=== PATIENT | female | born 1955 | race Caucasian/White ===

== ENCOUNTER 2017-07-08 09:44 | Inpatient (IN) | payer OTHER ==
[~2017-07-08] VITALS: Ht 154.9 cm; Wt 103.2 kg
[~2017-07-08 09:44] MED LIST: ALBU90OI INH; Amitriptyline150 MG PO; DELTASONE20 MG PO; DULERA 200 MCG/13 GM INH; MONT5TCH PO; OMEPRAZOLE MAGN20 MG PO; PAXIL40 MG PO; Q-Tussin100 MG/5 M PO
[2017-07-08] MEDS ORDERED: ACYC400 PO ×2 (10:07→14:08)
[2017-07-08 10:30] LABS: BASOPHILS ABSOLUTE AUTO 0.03 K/mm3 (0.00-0.23); BASOPHILS PERCENT AUTO 0 % (0-2); EOSINOPHILS ABSOLUTE AUTO 0.33 K/mm3 (0.00-0.68); EOSINOPHILS PERCENT AUTO 3 % (0-6); Hematocrit 37.3 % (33.0-51.0); Hemoglobin 12.5 g/dL (11.5-16.0); IMMATURE GRAN ABSOLUTE AUTO 0.11 K/mm3 (0.00-0.10); IMMATURE GRAN PERCENT AUTO 1 % (0-1); LYMPHOCYTES ABSOLUTE AUTO 0.92 K/mm3 (0.84-5.20); LYMPHOCYTES PERCENT AUTO 7 % (21-46); MONOCYTES PERCENT AUTO 6 % (4-13); Mean Corpuscular HGB 29.8 pg (26.0-34.0); Mean Corpuscular HGB Conc 33.5 g/dL (31.5-36.5); Mean Corpuscular Volume 89 fL (80-100); Mean Platelet Volume 9.2 fL (9.1-12.4); NEUTROPHILS ABSOLUTE AUTO 10.68 K/mm3 (1.96-9.15); NEUTROPHILS PERCENT AUTO 83 % (41-73); Platelet Count 340 K/mm3 (150-400); RDW Coefficient Variation 14.2 % (11.7-14.2); RDW Standard Deviation 45.8 fL (35.1-46.3); White Blood Cell Count 12.87 K/mm3 (4.00-11.30)
[2017-07-08 10:49] LABS: Alanine Aminotransfer (ALT/SGP 100 U/L (12-78); Albumin, Blood 2.5 g/dL (3.4-5.0); Albumin/Globulin Ratio 0.5 (0.8-1.8); Alk Phos 187 U/L (50-136); Anion Gap 10 mmol/L (6-16); Aspartate Aminotrans (AST/SGOT 49 U/L (12-37); Bilirubin, Total 0.5 mg/dL (0.1-1.0); Blood Urea Nitrogen 15 mg/dL (8-24); Bun/Creatinine Ratio 15.2 (12.0-20.0); CO2, Blood 26 mmol/L (21-32); Chloride, Blood 98 mmol/L (98-108); Creatinine, Blood 0.99 mg/dL (0.40-1.00); Globulin, Blood 4.8 g/dL (2.2-4.0); Glomerular Filtration Rate >60 (60-); Glucose, Blood 84 mg/dL (70-99); Potassium, Blood 3.7 mmol/L (3.5-5.5); Sodium, Blood 134 mmol/L (136-145); Total Protein, Blood 7.3 g/dL (6.4-8.2)
[2017-07-08 14:56] LABS: PCO2 Arterial 37.8 mmHg (35-45); PO2 Arterial 60.6 mmHg (80-100); pH Blood Arterial 7.45 (7.35-7.45)
[2017-07-08 16:34] LABS: Source, Urine Voided
[2017-07-08 16:43] LABS: Bilirubin, Urine Neg (Neg); Blood, Urine Neg (Neg); Glucose Qualitative, Urine Neg (Neg); Ketones, Urine 2+ (Neg); Leukocyte Esterase, Urine Neg (Neg); Nitrite, Urine Neg (Neg); Protein, Urine Neg (Neg); Urobilinogen, Urine NORM (Normal)
[2017-07-08 16:57] LABS: Influenza A Negative (NEGATIVE); Influenza B Negative (NEGATIVE)
[2017-07-08 17:35] LABS: Appearance, Urine Clear (Clear); Color, Urine Pale Yellow (P-Yellow)
[2017-07-09 07:50] LABS: BASOPHILS ABSOLUTE AUTO 0.01 K/mm3 (0.00-0.23); BASOPHILS PERCENT AUTO 0 % (0-2); EOSINOPHILS PERCENT AUTO 0 % (0-6); Hematocrit 35.1 % (33.0-51.0); Hemoglobin 11.7 g/dL (11.5-16.0); IMMATURE GRAN ABSOLUTE AUTO 0.14 K/mm3 (0.00-0.10); IMMATURE GRAN PERCENT AUTO 1 % (0-1); LYMPHOCYTES ABSOLUTE AUTO 1.08 K/mm3 (0.84-5.20); LYMPHOCYTES PERCENT AUTO 10 % (21-46); MONOCYTES ABSOLUTE AUTO 0.21 K/mm3 (0.16-1.47); MONOCYTES PERCENT AUTO 2 % (4-13); Mean Corpuscular HGB 29.9 pg (26.0-34.0); Mean Corpuscular HGB Conc 33.3 g/dL (31.5-36.5); Mean Corpuscular Volume 90 fL (80-100); Mean Platelet Volume 9.4 fL (9.1-12.4); NEUTROPHILS ABSOLUTE AUTO 9.78 K/mm3 (1.96-9.15); NEUTROPHILS PERCENT AUTO 87 % (41-73); Platelet Count 355 K/mm3 (150-400); RDW Standard Deviation 45.7 fL (35.1-46.3); Red Blood Cell Count 3.91 M/mm3 (3.80-5.20); White Blood Cell Count 11.22 K/mm3 (4.00-11.30)
[2017-07-09 08:05] LABS: Anion Gap 8 mmol/L (6-16); Blood Urea Nitrogen 16 mg/dL (8-24); Bun/Creatinine Ratio 19.6 (12.0-20.0); CO2, Blood 27 mmol/L (21-32); Calcium, Blood 8.4 mg/dL (8.5-10.1); Chloride, Blood 103 mmol/L (98-108); Creatinine, Blood 0.82 mg/dL (0.40-1.00); Glomerular Filtration Rate >60 (60-); Glucose, Blood 160 mg/dL (70-99); Potassium, Blood 3.8 mmol/L (3.5-5.5); Sodium, Blood 138 mmol/L (136-145)
[2017-07-09] MEDS ORDERED: ACYC400 PO (12:10)
[2017-07-09] MEDS ORDERED: PAXIL40 MG PO (12:11)
[2017-07-09] MEDS ORDERED: Omeprazole20 M1 PO (12:11)
[2017-07-09] MEDS ORDERED: Omnipred10 ML RIGHTEYE (19:50)
[2017-07-10 05:31] LABS: Hepatitis C Antibody Non Reactive (NR)
[2017-07-12 05:19] LABS: Hematocrit 35.1 % (33.0-51.0); Hemoglobin 11.4 g/dL (11.5-16.0); Mean Corpuscular HGB 29.8 pg (26.0-34.0); Mean Corpuscular HGB Conc 32.5 g/dL (31.5-36.5); Mean Corpuscular Volume 92 fL (80-100); Mean Platelet Volume 9.2 fL (9.1-12.4); Platelet Count 413 K/mm3 (150-400); RDW Coefficient Variation 14.7 % (11.7-14.2); RDW Standard Deviation 49.4 fL (35.1-46.3); Red Blood Cell Count 3.82 M/mm3 (3.80-5.20); White Blood Cell Count 14.76 K/mm3 (4.00-11.30)
[2017-07-12 05:49] LABS: Anion Gap 7 mmol/L (6-16); Blood Urea Nitrogen 15 mg/dL (8-24); Bun/Creatinine Ratio 17.9 (12.0-20.0); CO2, Blood 29 mmol/L (21-32); Calcium, Blood 8.8 mg/dL (8.5-10.1); Chloride, Blood 105 mmol/L (98-108); Creatinine, Blood 0.84 mg/dL (0.40-1.00); Glomerular Filtration Rate >60 (60-); Glucose, Blood 100 mg/dL (70-99); Potassium, Blood 4.1 mmol/L (3.5-5.5); Sodium, Blood 141 mmol/L (136-145)
[2017-07-12 05:57] LABS: BASOPHILS PERCENT MAN 0 % (0-2); EOSINOPHILS ABSOLUTE MAN 0.14 K/mm3 (0.00-0.68); EOSINOPHILS PERCENT MAN 1 % (0-6); LYMPHOCYTES % ATYPICAL MANUAL 2 % (0-0); LYMPHOCYTES ABSOLUTE MAN 3.39 K/mm3 (0.84-5.20); LYMPHOCYTES PERCENT MAN 21 % (21-46); MONOCYTES ABSOLUTE MAN 0.44 K/mm3 (0.16-1.47); MONOCYTES PERCENT MAN 3 % (4-13); NEUTROPHILS ABSOLUTE MAN 10.77 K/mm3 (1.96-9.15); SEG NEUTROPHILS PERCENT MAN 73 % (41-73); TOTAL CELLS COUNTED 100
[2017-07-12] MEDS ORDERED: AZIT500 PO (13:59)
[2017-07-12] MEDS ORDERED: SACC250C (14:00)
[2017-07-12] MEDS ORDERED: PRED10 PO (14:01)
== END 2017-07-12 14:33 | disposition home or self-care (01) | DRG 194 ==
LOC: ER 09:44 → MEDS 14:28 → ER 16:45 → MEDS 16:50
PROVIDERS: Internal Medicine; Psychiatry & Neurology Psychiatry
DX: J18.9 Pneumonia, unspecified organism (principal); J44.0 Chronic obstructive pulmonary disease with (acute) lower respiratory infection; B02.30 Zoster ocular disease, unspecified; K76.0 Fatty (change of) liver, not elsewhere classified; J44.1 Chronic obstructive pulmonary disease with (acute) exacerbation; K21.9 Gastro-esophageal reflux disease without esophagitis; R29.6 Repeated falls; R73.9 Hyperglycemia, unspecified; T38.0X5A Adverse effect of glucocorticoids and synthetic analogues, initial encounter; F17.200 Nicotine dependence, unspecified, uncomplicated; Z79.899 Other long term (current) drug therapy; Z88.8 Allergy status to other drugs, medicaments and biological substances
CPT/HCPCS: 36415; 36600; 71046; 76705; 80048; 80053; 81003; 82803; 82947; 83036; 83605; 85025; 86704; 86708; 86803; 87040; 87070; 87205; 87340; 87804; 94640; 94760; 96374; 96375; 97161; 97530; 99285; G8978; G8979; G8980; J0696; J1650; J2930; J7030; Q2038

== ENCOUNTER → 2017-10-07 | Outpatient (CLI) | payer OTHER ==
[~2017-10-07] MED LIST changes: +ACYC400 PO; +AZIT500 PO; +Omeprazole20 M1 PO; +Omnipred10 ML RIGHTEYE; +PRED10 PO; +SACC250C
[2017-10-07 16:13] LABS: BASOPHILS ABSOLUTE AUTO 0.04 K/mm3 (0.00-0.23); BASOPHILS PERCENT AUTO 1 % (0-2); EOSINOPHILS ABSOLUTE AUTO 0.31 K/mm3 (0.00-0.68); EOSINOPHILS PERCENT AUTO 4 % (0-6); Hematocrit 41.4 % (33.0-51.0); Hemoglobin 13.6 g/dL (11.5-16.0); IMMATURE GRAN ABSOLUTE AUTO 0.03 K/mm3 (0.00-0.10); IMMATURE GRAN PERCENT AUTO 0 % (0-1); LYMPHOCYTES ABSOLUTE AUTO 2.89 K/mm3 (0.84-5.20); LYMPHOCYTES PERCENT AUTO 33 % (21-46); MONOCYTES ABSOLUTE AUTO 0.65 K/mm3 (0.16-1.47); MONOCYTES PERCENT AUTO 7 % (4-13); Mean Corpuscular HGB 29.7 pg (26.0-34.0); Mean Corpuscular HGB Conc 32.9 g/dL (31.5-36.5); Mean Corpuscular Volume 90 fL (80-100); Mean Platelet Volume 9.4 fL (9.1-12.4); NEUTROPHILS ABSOLUTE AUTO 4.92 K/mm3 (1.96-9.15); NEUTROPHILS PERCENT AUTO 56 % (41-73); Platelet Count 394 K/mm3 (150-400); RDW Coefficient Variation 13.4 % (11.7-14.2); RDW Standard Deviation 44.8 fL (35.1-46.3); Red Blood Cell Count 4.58 M/mm3 (3.80-5.20); White Blood Cell Count 8.84 K/mm3 (4.00-11.30)
[2017-10-07 16:27] LABS: International Normalized Ratio 0.93; Prothrombin Time Results 9.6 Sec (9.7-11.5)
[2017-10-07 16:41] LABS: Alanine Aminotransfer (ALT/SGP 38 U/L (12-78); Albumin, Blood 3.4 g/dL (3.4-5.0); Albumin/Globulin Ratio 0.9 (0.8-1.8); Alk Phos 108 U/L (50-136); Anion Gap 4 mmol/L (6-16); Aspartate Aminotrans (AST/SGOT 25 U/L (12-37); Bilirubin, Total 0.2 mg/dL (0.1-1.0); Blood Urea Nitrogen 13 mg/dL (8-24); Bun/Creatinine Ratio 14.5 (12.0-20.0); CO2, Blood 31 mmol/L (21-32); Calcium, Blood 8.6 mg/dL (8.5-10.1); Chloride, Blood 105 mmol/L (98-108); Globulin, Blood 3.7 g/dL (2.2-4.0); Glomerular Filtration Rate >60 (60-); Glucose, Blood 96 mg/dL (70-99); Potassium, Blood 4.1 mmol/L (3.5-5.5); Sodium, Blood 140 mmol/L (136-145); Total Protein, Blood 7.1 g/dL (6.4-8.2)
== END ==
LOC: LAB 15:55 → LAB SHORT 15:55
PROVIDERS: Family Medicine
DX: S50.11XA Contusion of right forearm, initial encounter (principal)
CPT/HCPCS: 80053; 85025; 85610; 85730

== ENCOUNTER 2018-06-10 04:35 | Inpatient (IN) | payer OTHER ==
[~2018-06-10] VITALS: Ht 157.5 cm; Wt 102.6 kg
[2018-06-10 04:55] LABS: BASOPHILS ABSOLUTE AUTO 0.06 K/mm3 (0.00-0.23); BASOPHILS PERCENT AUTO 1 % (0-2); EOSINOPHILS ABSOLUTE AUTO 0.41 K/mm3 (0.00-0.68); EOSINOPHILS PERCENT AUTO 4 % (0-6); Hematocrit 42.2 % (33.0-51.0); Hemoglobin 13.5 g/dL (11.5-16.0); IMMATURE GRAN ABSOLUTE AUTO 0.02 K/mm3 (0.00-0.10); IMMATURE GRAN PERCENT AUTO 0 % (0-1); LYMPHOCYTES ABSOLUTE AUTO 3.79 K/mm3 (0.84-5.20); LYMPHOCYTES PERCENT AUTO 38 % (21-46); MONOCYTES ABSOLUTE AUTO 0.49 K/mm3 (0.16-1.47); MONOCYTES PERCENT AUTO 5 % (4-13); Mean Corpuscular HGB 29.5 pg (26.0-34.0); Mean Corpuscular Volume 92 fL (80-100); NEUTROPHILS ABSOLUTE AUTO 5.25 K/mm3 (1.96-9.15); NEUTROPHILS PERCENT AUTO 52 % (41-73); Platelet Count 354 K/mm3 (150-400); RDW Coefficient Variation 13.8 % (11.7-14.2); Red Blood Cell Count 4.57 M/mm3 (3.80-5.20); White Blood Cell Count 10.02 K/mm3 (4.00-11.30)
[2018-06-10 05:16] LABS: Alanine Aminotransfer (ALT/SGP 40 U/L (12-78); Albumin, Blood 3.1 g/dL (3.4-5.0); Albumin/Globulin Ratio 0.8 (0.8-1.8); Alk Phos 115 U/L (50-136); Anion Gap 9 mmol/L (6-16); Aspartate Aminotrans (AST/SGOT 30 U/L (12-37); Bilirubin, Total 0.4 mg/dL (0.1-1.0); Blood Urea Nitrogen 6 mg/dL (8-24); Bun/Creatinine Ratio 7.1 (12.0-20.0); CO2, Blood 25 mmol/L (21-32); Calcium, Blood 7.9 mg/dL (8.5-10.1); Chloride, Blood 108 mmol/L (98-108); Creatinine, Blood 0.85 mg/dL (0.40-1.00); Globulin, Blood 3.9 g/dL (2.2-4.0); Glomerular Filtration Rate >60 (60-); Glucose, Blood 119 mg/dL (70-99); Potassium, Blood 4.1 mmol/L (3.5-5.5); Sodium, Blood 142 mmol/L (136-145); Troponin I <0.015 ng/mL (0.000-0.040)
[2018-06-10] MEDS ORDERED: BUDE6HFA INH (08:06)
[2018-06-10] MEDS ORDERED: CLON.5 PO (08:07)
[2018-06-10 08:40] LABS: Influenza A Negative (NEGATIVE); Influenza B Negative (NEGATIVE)
--- NOTE | 2018-06-10 08:48 | NUR ---
ARRIVAL TO ICU 0800 - PT ARRIVES FROM ED TO ICU AT THIS TIME. SHE IS AWAKE, A/O X3, CALM AND COOPERATIVE. DENIES PAIN AT THIS TIME. VSS. SPO2 94% ON 2L NC. LUNG SOUNDS ARE INSPIRATORY AND EXPIRATORY WHEEZES THROUGHOUT. PT RECIEVED MULTIPLE BREATHING TREATMENTS WHILE IN ED. NO SIGN OF CURRENT RESPIRATORY DISTRESS BUT PT HAS SIGNIFICANT DYSPNEA WITH EXERTION. IV SALINE LOCKED. FLU SWAB OBTAINED. FLU SHOT ADMINISTERED PER PT REQUEST. PT SITTING UP IN BED DRINKING COFFEE AND WATCHING TV. WILL CONTINUE TO MONITOR.
--- NOTE | 2018-06-10 11:17 | NUR ---
REASSESSMENT VSS. PT UP TO TOILET INDEPENDENTLY AND NOW IS SOB WITH WORSENED INSPIRATORY AND EXPIRATORY WHEEZING. RT NOTIFIED AND PREPARING BREATHING TREATMENT AT THIS TIME. AFEBRILE. WILL CONTINUE TO MONITOR BREATHING AND RESP STATUS.
--- NOTE | 2018-06-10 15:50 | NUR ---
TRANSFER REPORT CALLED AND GIVEN TO EMILIANO ALLRED ON MEDICAL FLOOR. PT TO BE TRANSFERRED BY ANDROID ARCHITECT TO ROOM 342.
--- NOTE | 2018-06-10 16:48 | NUR ---
TRANSFER NOTE/SHIFT SUMMARY RECEIVED REPORT FROM IRVING GRANT RN IN ICU. PT TO ROOM VIA WHEELCHAIR AT 1625, PT TRANSFERED TO CHAIR WITH SBA. PT EDUCATED WEAVING PROFESSOR LIGHT AND ORIENTED TO ROOM. PT A&OX3, CALM AND COOPERATIVE WITH CARE. PT SOB WITH EXERTION, O2 SAT >90% ON 2L O2 VIA NC, LS WHEEZES T/O. PT RECEIVING IV SOLUMEDROL. VSS. NO OTHER ACUTE CHANGES NOTED DURING SHIFT. WILL CONTINUE TO MONITOR UNTIL REPORT GIVEN TO ONCOMING RN.
--- NOTE | 2018-06-10 17:37 | NUR ---
PT REPORTS FEELING ANXIOUS AND REQUESTING HOME MEDICATIONS. NOTIFIED DR HALL, NEW ORDERS ENTERED.
--- NOTE | 2018-06-11 05:59 | NUR ---
TELEPHONE CLERKS SUPERVISOR SUMMARY NO ACUTE CHANGES THIS SHIFT. PT AAOX4 AND INDEPENDENT IN HER ROOM. PLEASANT AND COOPERATIVE WITH CARE. LUNG SOUNDS WHEEZY ON INSPIRATION/EXPERATION. SCHEDULED AND PRN BREATHING TREATMENTS THROUGH THE NIGHT PER RT. O2 SATS REMAIN >90%. PT DOES GET VERY ANXIOUS AT TIMES, ESPECIALLY WHEN SOB. GAVE PT KLONOPIN FOR ANXIOUSNESS WHICH HELPED PT RELAX AND SLEEP. PT HAS CONTINUED TO BE SLIGHTLY TACHY WITH HR IN LOW 100'S. OTHER VSS, WILL CONTINUE TO MONITOR.
--- NOTE | 2018-06-11 16:18 | NUR ---
Initial Visit: Palliative care consult for advanced care planning, POLST, and advanced directive. Pt is A&O X 4 and denies pain at this time. She reports her dyspnea has improved but when speaking with her she appears mildly dyspneic when speaking. She reports the current regimen is helpful but still experiences SOB. She reports drinking chamonile tea is very helpful in managing her anxiety and in trun her dyspnea. She also reports the clonazepam is helping in managing her anxiety. 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 Discussion of advanced directive and POLST was made and Pt is agreeable. She denies needing help filling forms out. Spoke with Pt's nurse Scarlett and she reports no concerns at this time. Plan is to obtain POLST and advanced directive from Pt once completed. Will remain available.
--- NOTE | 2018-06-11 18:26 | NUR ---
SHIFT SUMMARY- PT HAS HAD NO ACUTE CHANGES T/O THE SHIFT. PT HAS ANXIETY THAT SHE STATES IS WELL CONTROLLED WITH PRN CLONAZEPAM. PT LARGEST COMPLAINT WAS THAT SHE HAS NOT SLEPT "IN DAYS." PT HAS SLEPT FREQUENTLY T/O THE SHIFT, STAFF HAD TO SHAKE HER TO WAKE HER FOR 1400 MEDS. PT WAS UNAWARE THAT SHE HAD BEEN SLEEPING. AFTER SHE WAS AWAKE SHE STATED SHE DIDN'T REALIZE SHE HAD FALLEN ASLEEP, IT FELT LIKE SHE STILL HAS NOT SLEPT. PT REQUESTED CHAMOMILE TEA, STATING IT WORKED WELL FOR HER LAST NIGHT. WILL PASS THIS ON IN REPORT, PT STILL RECIEVING Q6 IV PREDNISONE. AND TREATMENTS FROM RT.
--- NOTE | 2018-06-12 05:24 | NUR ---
SHROUDMAN SUMMARY NO ACUTE CHANGES THIS SHIFT. PT AAOX4 AND INDEPENDENT IN THE ROOM. STILL SOME INSPIRATORY/EXPIRATORY WHEEZES. BREATHING TREATMENTS PER RT. PT STATES BREATHING "FEELS A LITTLE BETTER THAN YESTERDAY". PT ALSO SLEPT WELL THROUGH THE ENTIRE NIGHT. CHAMOMILE TEA WORKS WELL TO HELP PT SLEEP. CONTINUED ON IV SOLUMEDROL. VSS, WILL CONTINUE TO MONITOR.
--- NOTE | 2018-06-12 12:02 | NUR ---
Pt visit this AM. Pt sitting up on the edge of her bed upon arrival. She denies pain at this time. She reports mild dyspnea but states her breathing has slightly improved and is starting to feel better. Pt reports that she has not filled out her POLST and advanced directive and is waiting for her significant other to come so she can report to him her wishes. Offered Pt assistance in filling forms out and she denies need. She requests that this RN returns tomorrow and will have forms ready. Spoke with Pt's nurse Fabiola and she reports no concerns at this time. Plan for F/U tomorrow and will be available.
--- NOTE | 2018-06-12 17:07 | NUR ---
SHIFT SUMMARY PATIENT HAS HAD NO ACUTE CHANGES. SHE IS ABLE TO MAKE HER NEEDS KNOWN.
--- NOTE | 2018-06-13 07:20 | NUR ---
SHIFT SUMMARY: EXPIRATORY WHEEZE AUSCULTATED IN UPPER AND LOWER BASES. PT ON 2L VIA NC, REPORTS SOB c MOVEMENT AND DURING CONVERSATION. PT HAS DRY, HACKY COUGH. ONE EPISODE OF EMESIS FOR TOTAL CONTENTS OF 600mL. PT REPROTS COUGHING SO HARD THAT SHE THREW UP. A&O, COOPERATIVE + PLEASANT, AND INDEPENDENT IN ROOM ON BEDREST c BATHROOM PRIVILEGES. RECIEVING Q6H SOLU-MEDROL IV. NO OTHER ACUTE CHANGES TO REPORT, WILL CONT TO MONITOR AND PROVIDE CARE UNTIL PRESUMED BY ONCOMING RN.
--- NOTE | 2018-06-13 18:43 | NUR ---
SHIFT SUMMARY- PT RECIEVED IV ABX FOR THE FIRST TIME, SHE WOKE FOR DINNER AND STATED SHE FEELS ALOT BETTER, SHE SEEMS LESS GROGGY AND MORE ALERT, NO C/O PAIN, SHE STATES THE TIGHTNESS IN HER CHEST FEELS BETTER. PT SITTING AT THE EOB WITH HER CALL LIGHT IN REACH.
[2018-06-14 05:17] LABS: BASOPHILS ABSOLUTE AUTO 0.03 K/mm3 (0.00-0.23); BASOPHILS PERCENT AUTO 0 % (0-2); EOSINOPHILS PERCENT AUTO 0 % (0-6); Hematocrit 41.6 % (33.0-51.0); Hemoglobin 13.3 g/dL (11.5-16.0); IMMATURE GRAN ABSOLUTE AUTO 0.32 K/mm3 (0.00-0.10); IMMATURE GRAN PERCENT AUTO 2 % (0-1); LYMPHOCYTES ABSOLUTE AUTO 1.38 K/mm3 (0.84-5.20); LYMPHOCYTES PERCENT AUTO 9 % (21-46); MONOCYTES ABSOLUTE AUTO 0.71 K/mm3 (0.16-1.47); MONOCYTES PERCENT AUTO 5 % (4-13); Mean Corpuscular HGB 29.4 pg (26.0-34.0); Mean Corpuscular Volume 92 fL (80-100); Mean Platelet Volume 9.1 fL (9.1-12.4); NEUTROPHILS ABSOLUTE AUTO 12.74 K/mm3 (1.96-9.15); NEUTROPHILS PERCENT AUTO 84 % (41-73); Platelet Count 353 K/mm3 (150-400); RDW Coefficient Variation 13.9 % (11.7-14.2); RDW Standard Deviation 47.2 fL (35.1-46.3); Red Blood Cell Count 4.53 M/mm3 (3.80-5.20); White Blood Cell Count 15.18 K/mm3 (4.00-11.30)
[2018-06-14 05:37] LABS: Anion Gap 6 mmol/L (6-16); Blood Urea Nitrogen 22 mg/dL (8-24); Bun/Creatinine Ratio 27.8 (12.0-20.0); CO2, Blood 29 mmol/L (21-32); Calcium, Blood 8.9 mg/dL (8.5-10.1); Chloride, Blood 102 mmol/L (98-108); Creatinine, Blood 0.79 mg/dL (0.40-1.00); Glomerular Filtration Rate >60 (60-); Glucose, Blood 167 mg/dL (70-99); Potassium, Blood 4.4 mmol/L (3.5-5.5); Sodium, Blood 137 mmol/L (136-145)
--- NOTE | 2018-06-14 06:41 | NUR ---
SHIFT SUMMARY: SLEPT THE ENTIRE SHIFT, AROUSING FOR MEDS AND ASSESSMENTS. A&O X 4. REPORTS FEELING BETTER AFTER RECIEVING ANTIBIOTICS FROM DAYSHIFT RN. EXP WHEEZE AUSCULTATED T/O ALL LUNG DOAN. DRY COUGH HAS IMPROVED SINCE LAST NIGHT. PT DENIES PAIN OR DISCOMFORT OF ANY SORT. CONT TO RECIEVE IV SOLU MEDROL Q6H. INDEPENDENT IN ROOM. PT ABLE TO WEAN OFF O2 THIS MORNING, TOLERATING RA @ 92 - 93%. PT TO D/C EITHER TODAY OR TOMORROW, PT AWARE OF THIS AND IS FEELING "READY AND EXCITED" TO GO HOME. WILL CONT TO MONITOR AND PROVIDE CARE UNTIL PRESUMED BY ONCOMING RN.
--- NOTE | 2018-06-14 13:13 | NUR ---
PATIENT ALERT AND ORIENTED. LUNGS COARSE T/O. IV STEROID DOSE DECREASED. REVIEW POSSIBLY GOING HOME ON PREDNISONE. GOOD APPETITE. COOPERATIVE. PLEASANT. INDEPENDENT IN ROOM. ON R.A. BED IN LOW POSITION. CALL LIGHT WITHIN REACH. WILL CONTINUE TO MONITOR.
--- NOTE | 2018-06-14 18:20 | NUR ---
PATIENT ALERT AND ORIENTED. MEDICATED FOR SINUS HEADACHE W/GOOD RESULTS. MOIST, HARSH SOUNDING COUGH. LUNGS COARSE T/O. INDEPENDENT IN ROOM. IV PATENT. WILL CONTINUE TO MONITOR.
--- NOTE | 2018-06-14 23:14 | NUR ---
PT'S TEMP IS 100.8, IT WAS 100.1, GAVE TYLENOL AT HS. PT'S TEMP IN ROOM WAS UP, WE TURNED IT DOWN. STRIPPED BLANKETS OFF AND LEFT A SHEET.
--- NOTE | 2018-06-15 00:09 | NUR ---
06/14/18 2133 PT LYING IN BED, REPORTS SOB THAT INCREASES WITH EXERTION. ON 3L O2 NC AT 93%, WILL HUMIDIFY. NO OTHER APPARENT SIGNS OF DISTRESS. CALL LIGHT IS IN REACH.
--- NOTE | 2018-06-15 01:08 | NUR ---
0000 PT LYING IN BED, WATCHING TV. NO APPARENT SIGNS OF DISTRESS. CALL LIGHT IS IN REACH.
--- NOTE | 2018-06-15 01:59 | NUR ---
PT LYING IN BED, EYES CLOSED, APPEARS TO BE RESTING. BREATHING IS EVEN, UNLABORED. NO APPARENT SIGNS OF DISTRESS. CALL LIGHT IS IN REACH.
--- NOTE | 2018-06-15 03:34 | NUR ---
PT LYING IN BED, EYES CLOSED, APPEARS TO BE RESTING. BREATHING IS EVEN, UNLABORED. NO APPARENT SIGNS OF DISTRESS. CALL LIGHT IS IN REACH.
--- NOTE | 2018-06-15 03:39 | NUR ---
PT IS AAO X 4, ON 3L O2 NC HUMIDIFIED AT 93%. REPORTS SOB THAT INCREASES WITH EXERTION. 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 POSSIBLE DISCHARGE HOME TODAY.
--- NOTE | 2018-06-15 07:29 | NUR ---
PT LYING IN BED, AWAKE, NO APPARENT SIGNS OF DISTRESS. CALL LIGHT IS IN REACH. DENIES NEED FOR ANYTHING AT THIS TIME. NO OTHER CHANGES THIS SHIFT.
[2018-06-15] MEDS ORDERED: PRED20 PO (11:03)
--- NOTE | 2018-06-15 11:40 | NUR ---
REVIEW D'C WITH PATIENT AND S.O. AWARE TO FILM MASKER RX'S X 2 AT [facility]. AWARE TO MAKE F/U APPT W/SANG MARTINEZP. AWARE TO NOT TAKE STEROID EYE DROPS WHILE ON P.O. STEROIDS. ANSWER ALL QUESTIONS. IN W/C W/RN TO POV W/S.O. DRIVING.
== END 2018-06-15 11:40 | disposition home or self-care (01) | DRG 189 ==
LOC: ER 04:35 → ICUW 06:39 → MEDS 06:39 → ICUE 07:42 → MEDS 07:49
PROVIDERS: Emergency Medicine; Hospitalist; ADMIT Hospitalist
PROC: 5A09357 Assistance with Respiratory Ventilation, Less than 24 Consecutive Hours, Continuous Positive Airway Pressure (ICD-10-PCS; principal; 2018-06-10)
DX: J96.21 Acute and chronic respiratory failure with hypoxia (principal); J44.1 Chronic obstructive pulmonary disease with (acute) exacerbation; J45.901 Unspecified asthma with (acute) exacerbation; K21.9 Gastro-esophageal reflux disease without esophagitis; F17.210 Nicotine dependence, cigarettes, uncomplicated; F32.9 Major depressive disorder, single episode, unspecified; E66.9 Obesity, unspecified; Z68.32 Body mass index [BMI] 32.0-32.9, adult; R00.0 Tachycardia, unspecified
CPT/HCPCS: 36415; 71045; 80048; 80053; 83880; 84484; 85025; 87804; 90686; 93005; 93010; 94640; 94644; 94760; 99285-25; J0456; J1650; J2920; J2930; J7050

== ENCOUNTER 2019-04-30 14:19 | Inpatient (IN) | payer OTHER ==
[~2019-04-30] VITALS: Ht 154.9 cm; Wt 98.9 kg
[~2019-04-30 14:19] MED LIST changes: -ALBU90OI INH; +Amitriptyline100 MG PO; -Amitriptyline150 MG PO; +BUDE6HFA INH; +CLON.5 PO; -Omeprazole20 M1 PO; +PARO20 PO; +PRED20 PO
[2019-04-30 14:48] LABS: BASOPHILS ABSOLUTE AUTO 0.03 K/mm3 (0.00-0.23); BASOPHILS PERCENT AUTO 0 % (0-2); EOSINOPHILS ABSOLUTE AUTO 0.05 K/mm3 (0.00-0.68); EOSINOPHILS PERCENT AUTO 0 % (0-6); Hematocrit 40.9 % (33.0-51.0); Hemoglobin 13.2 g/dL (11.5-16.0); IMMATURE GRAN ABSOLUTE AUTO 0.12 K/mm3 (0.00-0.10); IMMATURE GRAN PERCENT AUTO 1 % (0-1); LYMPHOCYTES ABSOLUTE AUTO 4.64 K/mm3 (0.84-5.20); LYMPHOCYTES PERCENT AUTO 27 % (21-46); MONOCYTES ABSOLUTE AUTO 0.97 K/mm3 (0.16-1.47); MONOCYTES PERCENT AUTO 6 % (4-13); Mean Corpuscular HGB 29.2 pg (26.0-34.0); Mean Corpuscular HGB Conc 32.3 g/dL (31.5-36.5); Mean Corpuscular Volume 91 fL (80-100); Mean Platelet Volume 9.5 fL (9.1-12.4); NEUTROPHILS ABSOLUTE AUTO 11.64 K/mm3 (1.96-9.15); NEUTROPHILS PERCENT AUTO 67 % (41-73); Platelet Count 355 K/mm3 (150-400); RDW Coefficient Variation 13.7 % (11.7-14.2); RDW Standard Deviation 45.8 fL (35.1-46.3); Red Blood Cell Count 4.52 M/mm3 (3.80-5.20); White Blood Cell Count 17.45 K/mm3 (4.00-11.30)
[2019-04-30 14:49] LABS: PCO2 Arterial 44.4 mmHg (35-45); PO2 Arterial 68.4 mmHg (80-100); pH Blood Arterial 7.41 (7.35-7.45)
[2019-04-30 15:14] LABS: Alanine Aminotransfer (ALT/SGP 37 U/L (12-78); Albumin, Blood 3.2 g/dL (3.4-5.0); Albumin/Globulin Ratio 0.9 (0.8-1.8); Alk Phos 102 U/L (50-136); Anion Gap 8 mmol/L (6-16); Aspartate Aminotrans (AST/SGOT 21 U/L (12-37); Bilirubin, Total 0.1 mg/dL (0.1-1.0); Blood Urea Nitrogen 15 mg/dL (8-24); Bun/Creatinine Ratio 16.9 (12.0-20.0); CO2, Blood 25 mmol/L (21-32); Calcium, Blood 8.3 mg/dL (8.5-10.1); Chloride, Blood 107 mmol/L (98-108); Creatinine, Blood 0.89 mg/dL (0.40-1.00); Globulin, Blood 3.5 g/dL (2.2-4.0); Glomerular Filtration Rate >60 (60-); Glucose, Blood 141 mg/dL (70-99); Potassium, Blood 3.4 mmol/L (3.5-5.5); Sodium, Blood 140 mmol/L (136-145); Total Protein, Blood 6.7 g/dL (6.4-8.2); Troponin I <0.015 ng/mL (0.000-0.040)
[2019-04-30] MEDS ORDERED: ATORVASTATIN CA40 MG PO (16:00)
[2019-04-30] MEDS ORDERED: TOPROL XL50 MG PO (16:00)
[2019-04-30] MEDS ORDERED: ALBU90OI INH (16:58)
[2019-04-30] MEDS ORDERED: ANORO ELLIPTA1 EACH INH (16:59)
[2019-04-30] MEDS ORDERED: Aspir 8181 MG PO (17:05)
[2019-04-30] MEDS ORDERED: Omeprazole20 M1 PO (17:05)
[2019-04-30] MEDS ORDERED: Accuneb1.25 MG/3 NEB (17:12)
[2019-05-01 04:33] LABS: Hematocrit 38.8 % (33.0-51.0); Hemoglobin 12.6 g/dL (11.5-16.0); Mean Corpuscular HGB 29.6 pg (26.0-34.0); Mean Corpuscular HGB Conc 32.5 g/dL (31.5-36.5); Mean Corpuscular Volume 91 fL (80-100); Mean Platelet Volume 9.4 fL (9.1-12.4); Platelet Count 360 K/mm3 (150-400); RDW Standard Deviation 47.2 fL (35.1-46.3); Red Blood Cell Count 4.26 M/mm3 (3.80-5.20); White Blood Cell Count 17.08 K/mm3 (4.00-11.30)
--- NOTE | 2019-05-01 04:44 | NUR ---
Shift Summary Patient slept poorly overnight. She demonstrates SOB on exhertion/ambulation. Lung sounds are wheezy throughout. Lactic acid lab is being monitored closely, and it has decreased with fluid boluses. RT is following and administering nebulizer treatments. She is maintaining O2 saturation in the mid 90's on room air.
--- NOTE | 2019-05-01 05:15 | NUR ---
critical lab Spoke with Dr. Howell about elevated lactic acid lab, with decreased only slightly from 4.5 to 4.2. Reported stable vital signs and 02 saturation (see vitals charting) and patient presentation. No new orders recieved, and it was mentioned that albuterol may be contributing.
--- NOTE | 2019-05-01 13:12 | NUR ---
1300 PATIENT STARTED COUGHIG HARD ON LUNCH, POSSIBLE ASPIRATION.LUNG SOUNDS WENT FROM CLEAR TO DIMINSHED. PATIENT STATES THIS HAPPENS FREQUENTLY. RT CALLED IN AND TX GIVEN. DOCTOR NOTIFIED. CHEST XRAY AND SPEECH/SWALLOW EVAL ORDERED. PATIENT SITTING ON BEDSIDE TALKING WITH FRIEND AT THIS TIME. NO DISTRESS NOTED.
--- NOTE | 2019-05-01 16:54 | NUR ---
PATIENT ADMITTED FROM ER WITH DVT TO RIGHT L EXTREMITY. SHE IS OH HEPARIN AND K+FOR LOW k+. SHE IS REMAINING IN BED DUE TO CHRONIC BACK PAIN. SHE IS ALERT AND ORIENTED AND COMPLIANT WITH ALL CARES. HAS BEEN AT BEDSIDE. SHE HAS HAD NO COMPLAINTS AND NO REPORTS FROM TELE THIS SHIFT.
--- NOTE | 2019-05-01 17:01 | NUR ---
PTS LACTIC ACID AT 4.2 DOCTOR NOTIFIED OF LAB.
--- NOTE | 2019-05-02 05:28 | NUR ---
Shift Summary Patient slept well overnight. She offered no c/o SOB at rest. O2 saturation has remained >90% on room air.
[2019-05-02] MEDS ORDERED: METO50ER PO (11:34)
[2019-05-02] MEDS ORDERED: Prednisone10 MG PO (11:37)
[2019-05-02] MEDS ORDERED: ALBU3IS INH (11:38)
--- NOTE | 2019-05-02 13:40 | NUR ---
PATIENT D/C'D TO HOME WITH . RX MEDICATIONS FAXED TO [facility] ON [address]. D/C INSTRUCTIONS AND EDUCATION DISCUSSED WITH PATIENT AND COPY PROVIDED. FOLLOW UP APPT MADE WITH PCP. SPOKE WITH LAUREL, PRACTICING DERMATOLOGIST AND PATIENT IS CURRENTLY WAITING FOR HER INSURANCE TO BE APPROVED. PATIENT KNOWS THAT SHE WILL NEED TO MAKE A PULMONOLOGY FOLLOW UP APPT ONCE SHE KNOWS HER POLICY NUMBER WITH HER NEW INSURANCE. PATIENT DENIES ANY FURTHER QUESTIONS OR CONCERNS.
== END 2019-05-02 14:05 | disposition home or self-care (01) | DRG 189 ==
LOC: ER 14:19 → MEDS 14:20 → ENPENDDIS 05-02 10:35 → MEDS 05-02 14:05
PROVIDERS: Physician Assistant; ADMIT Internal Medicine
DX: J96.01 Acute respiratory failure with hypoxia (principal); J44.1 Chronic obstructive pulmonary disease with (acute) exacerbation; E87.2 Acidosis; Z68.41 Body mass index [BMI] 40.0-44.9, adult; F32.9 Major depressive disorder, single episode, unspecified; K21.9 Gastro-esophageal reflux disease without esophagitis; E87.6 Hypokalemia; E66.9 Obesity, unspecified; T48.6X5A Adverse effect of antiasthmatics, initial encounter; R00.0 Tachycardia, unspecified; Z87.891 Personal history of nicotine dependence; Z79.52 Long term (current) use of systemic steroids; Z79.899 Other long term (current) drug therapy
CPT/HCPCS: 36415; 36600; 71045; 71046; 80053; 82803; 83605; 84145; 84484; 85025; 85027; 87040; 93005; 93010; 94640; 94644; 94664; 94667; 94760; 96361; 96365; 96367; 96372; 96375; 96376; 98960; 99285-25; C9113; G0378; J0696; J1650; J2930; J3475; J7030; J7120; J7512

== ENCOUNTER 2019-05-17 14:39 | Emergency (ER) | payer SELFPAY ==
[~2019-05-17] VITALS: Ht 157.5 cm; Wt 81.7 kg
[~2019-05-17 14:39] MED LIST changes: +ALBU3IS INH; +ALBU90OI INH; +ANORO ELLIPTA1 EACH INH; +ATORVASTATIN CA40 MG PO; +Accuneb1.25 MG/3 NEB; +Aspir 8181 MG PO; +METO50ER PO; +Omeprazole20 M1 PO; +Prednisone10 MG PO; +TOPROL XL50 MG PO
== END 2019-05-17 15:44 | disposition home or self-care (01) ==
LOC: ER 14:39
DX: M25.571 Pain in right ankle and joints of right foot (principal); W18.30XA Fall on same level, unspecified, initial encounter; Z88.8 Allergy status to other drugs, medicaments and biological substances; Z79.899 Other long term (current) drug therapy; Z79.82 Long term (current) use of aspirin; Z79.52 Long term (current) use of systemic steroids; K21.9 Gastro-esophageal reflux disease without esophagitis; J45.909 Unspecified asthma, uncomplicated; Z87.891 Personal history of nicotine dependence
CPT/HCPCS: 73610; 99283-25

== ENCOUNTER 2019-08-04 21:13 | Inpatient (IN) | payer SELFPAY ==
[~2019-08-04] VITALS: Ht 157.5 cm; Wt 99.3 kg
[2019-08-04 21:41] LABS: BASOPHILS ABSOLUTE AUTO 0.08 K/mm3 (0.00-0.23); BASOPHILS PERCENT AUTO 1 % (0-2); EOSINOPHILS ABSOLUTE AUTO 0.57 K/mm3 (0.00-0.68); EOSINOPHILS PERCENT AUTO 4 % (0-6); Hematocrit 41.4 % (33.0-51.0); Hemoglobin 13.3 g/dL (11.5-16.0); IMMATURE GRAN ABSOLUTE AUTO 0.04 K/mm3 (0.00-0.10); IMMATURE GRAN PERCENT AUTO 0 % (0-1); LYMPHOCYTES ABSOLUTE AUTO 4.34 K/mm3 (0.84-5.20); LYMPHOCYTES PERCENT AUTO 30 % (21-46); MONOCYTES ABSOLUTE AUTO 0.62 K/mm3 (0.16-1.47); MONOCYTES PERCENT AUTO 4 % (4-13); Mean Corpuscular HGB 29.2 pg (26.0-34.0); Mean Corpuscular HGB Conc 32.1 g/dL (31.5-36.5); Mean Corpuscular Volume 91 fL (80-100); Mean Platelet Volume 9.6 fL (9.1-12.4); NEUTROPHILS ABSOLUTE AUTO 9.05 K/mm3 (1.96-9.15); NEUTROPHILS PERCENT AUTO 62 % (41-73); Platelet Count 424 K/mm3 (150-400); RDW Coefficient Variation 12.9 % (11.7-14.2); RDW Standard Deviation 43.4 fL (35.1-46.3); Red Blood Cell Count 4.56 M/mm3 (3.80-5.20)
[2019-08-04 22:03] LABS: Alanine Aminotransfer (ALT/SGP 48 U/L (12-78); Albumin, Blood 3.2 g/dL (3.4-5.0); Albumin/Globulin Ratio 0.8 (0.8-1.8); Alk Phos 98 U/L (50-136); Anion Gap 10 mmol/L (6-16); Aspartate Aminotrans (AST/SGOT 32 U/L (12-37); Bilirubin, Total 0.2 mg/dL (0.1-1.0); Blood Urea Nitrogen 12 mg/dL (8-24); Bun/Creatinine Ratio 12.2 (12.0-20.0); CO2, Blood 28 mmol/L (21-32); Calcium, Blood 8.9 mg/dL (8.5-10.1); Chloride, Blood 103 mmol/L (98-108); Creatinine, Blood 0.99 mg/dL (0.40-1.00); Globulin, Blood 3.8 g/dL (2.2-4.0); Glomerular Filtration Rate >60 (60-); Glucose, Blood 183 mg/dL (70-99); Potassium, Blood 3.6 mmol/L (3.5-5.5); Sodium, Blood 141 mmol/L (136-145); Troponin I <0.015 ng/mL (0.000-0.040)
[2019-08-04 23:01] LABS: Source, Urine Voided
[2019-08-04 23:07] LABS: Bilirubin, Urine Neg (Neg); Blood, Urine Neg (Neg); Glucose Qualitative, Urine Neg (Neg); Ketones, Urine Neg (Neg); Leukocyte Esterase, Urine Neg (Neg); Nitrite, Urine Neg (Neg); Protein, Urine Neg (Neg); Urobilinogen, Urine NORM (Normal)
[2019-08-04 23:11] LABS: Appearance, Urine Clear (Clear); Color, Urine Yellow (P-Yellow)
[2019-08-04 23:25] LABS: Bicarbonate Venous 26.4 mmol/L (24.0-30.0); PCO2 Venous 34.7 mmHg (38-42); PO2 Venous 203 mmHg (38-42); pH Blood Venous 7.48 (7.34-7.37)
[2019-08-05 01:51] LABS: Adenovirus Not Detected (NOT DETECT); Bordetella pertussis Not Detected (NOT DETECT); Chlamydophila pneumoniae Not Detected (NOT DETECT); Coronavirus 229E Not Detected (NOT DETECT); Coronavirus HKU1 Not Detected (NOT DETECT); Coronavirus NL63 Not Detected (NOT DETECT); Coronavirus OC43 Not Detected (NOT DETECT); Human Metapneumovirus Not Detected (NOT DETECT); Human Rhinovirus/Enterovirus Not Detected (NOT DETECT); Influenza A Not Detected (NOT DETECT); Influenza A/2009-H1 Not Detected (NOT DETECT); Influenza A/H1 Not Detected (NOT DETECT); Influenza A/H3 Not Detected (NOT DETECT); Influenza B Not Detected (NOT DETECT); Mycoplasma pneumoniae Not Detected (NOT DETECT); Parainfluenza Virus 1 Not Detected (NOT DETECT); Parainfluenza Virus 2 Not Detected (NOT DETECT); Parainfluenza Virus 3 Not Detected (NOT DETECT); Parainfluenza Virus 4 Not Detected (NOT DETECT); Respiratory Syncytial Virus Not Detected (NOT DETECT)
--- NOTE | 2019-08-05 04:05 | NUR ---
SHIFT SUMMARY PT WAS NEW ER ADMIT THIS SHIFT (1220), PT HAS HAD NO ACUTE CHANGES SINCE ASSUMING CARE, NO C/O ANY KIND. PT SLEPT T/O NIGHT ON 2L O2, SATS HAVE REMAINED 93-97%, PT SLEEPING AT THIS TIME, CALL LIGHT IN REACH, WILL CONT TO MONITOR UNTIL REPORT GIVEN TO DAY RN.
[2019-08-05 05:23] LABS: Hematocrit 39.7 % (33.0-51.0); Hemoglobin 12.7 g/dL (11.5-16.0); Mean Corpuscular HGB 29.1 pg (26.0-34.0); Mean Corpuscular Volume 91 fL (80-100); Mean Platelet Volume 9.4 fL (9.1-12.4); Platelet Count 397 K/mm3 (150-400); RDW Coefficient Variation 12.8 % (11.7-14.2); RDW Standard Deviation 42.8 fL (35.1-46.3); Red Blood Cell Count 4.37 M/mm3 (3.80-5.20); White Blood Cell Count 10.64 K/mm3 (4.00-11.30)
[2019-08-05 05:51] LABS: Alanine Aminotransfer (ALT/SGP 43 U/L (12-78); Albumin/Globulin Ratio 0.8 (0.8-1.8); Alk Phos 96 U/L (50-136); Anion Gap 7 mmol/L (6-16); Aspartate Aminotrans (AST/SGOT 26 U/L (12-37); Bilirubin, Total 0.2 mg/dL (0.1-1.0); Blood Urea Nitrogen 11 mg/dL (8-24); CO2, Blood 26 mmol/L (21-32); Calcium, Blood 9.1 mg/dL (8.5-10.1); Chloride, Blood 106 mmol/L (98-108); Creatinine, Blood 0.91 mg/dL (0.40-1.00); Globulin, Blood 3.9 g/dL (2.2-4.0); Glomerular Filtration Rate >60 (60-); Glucose, Blood 180 mg/dL (70-99); Potassium, Blood 4.1 mmol/L (3.5-5.5); Sodium, Blood 139 mmol/L (136-145); Total Protein, Blood 6.9 g/dL (6.4-8.2)
[2019-08-05] MEDS ORDERED: LEVSOD25 PO (10:18)
[2019-08-05] MEDS ORDERED: DIGOX PO (10:19)
--- NOTE | 2019-08-05 19:45 | NUR ---
SHIFT SUMMARY- PT ALERT AND ORIENTED INDEPENDENT IN THE ROOM. PT HAS TIGH WHEEZY LUNGS SCHEDULED BREATHING Tx WELL Q1H PRN TREATMENTS. PT ON IV STEROIDS Q6 HOURS. PT BECOMES ANXIOUS AND TACHY WHEN SHE HAS DIFFICULTY BREATHING. PER PT SHE DOES NOT TAKE ANYTHING FOR ANXIETY AT HOME. PT HAS DENIED ANY PAIN T/O THE SHIFT.
--- NOTE | 2019-08-06 07:43 | NUR ---
SHIFT SUMMARY PATIENT ALERT AND ORIENTED. INDEPENDENT WHEN WALKING IN ROOM BUT HAS DYSPNEA UPON EXHERTION. PATIENT CURRENTLY ON 2 LITERS O2 VIA NASAL CANULA. IV PATENT AND FLUSHED. BED IN LOWEST POSITION WITH WHEELS LOCKED. CALL LIGHT SARAH RACHEL. REPORT GIVEN TO ONCOMING RN.
--- NOTE | 2019-08-06 11:21 | NUR ---
PATIENT STATUS PATIENT DENIES PAIN OR DISCOMFOR. SHE REPORTS HER BREATHING AT A "3/10". DENIES NEED FOR RESPIRATORY INTERVENTION. PATIENT IS MILDLY SOB WITH ACTIVITY. THIS RESOLVES QUICKLY AT REST. INCENTIVE SPIROMETER AND FLUTTER VALVE AT BEDSIDE. PATIENT ABLE TO DEMONSTRATE FLUTTER VALVE AND REPORTS KNOWLEDGE ON BOTH. PATIENT ASKED IF SHE WOULD BE ABLE TO DISCHARGE TODAY. DISCUSSED WITH DR. NORTON. NO NEW ORDER TO DISCHARGE AT THIS TIME.
--- NOTE | 2019-08-06 18:10 | NUR ---
END OF SHIFT SUMMARY: PATIENT DENIED PAIN OR DISCOMFORT THROUGHOUT THE SHIFT. PATIENT REPORTED SOME DISCOMFORT FROM SOB WITH ACTIVITY, BUT REPORTED THAT IT QUICKLY RESOLVED WITH REST. PATIENT RESPONDED WELL TO PRN RT TREATMENTS. PATIENT REPORTS THAT SHE FEELS WELL ENOUGH TO GO HOME TOMORROW.
--- NOTE | 2019-08-06 19:32 | NUR ---
pt rapid response moved to pcu will follow up with care plan attemtpted polst last admission.
--- NOTE | 2019-08-06 19:56 | NUR ---
PT ARRIVED FROM MEDICAL FLOOR DUE TO RESPIRATOR DISTRESS; MAKEUP EDITOR; TRANSFERED TO BED VIA SLIDER SHEET; BIPAP IN PLACE; RT, RN AND ASSOCIATE DIRECTOR CAREER SERVICES AT BEDSIDE; BIPAP 12/7 FIO2 50%; O2 SATS >95; LUNG SOUNDS COARSE W/WHEEZES; PT ANXIOUS; SINUS TACH HR 127 NOTED ON TELE; PT DENIES CHEST PAIN; CALL LIGHT IN REACH; BED IN LOWEST POSITION.
--- NOTE | 2019-08-06 20:09 | NUR ---
RAPID RESPONSE: LATE ENTRY. NURSE NOTIFIED THAT PATIENT WAS EXPERIENCING SOB AND DIFFICULTY BREATHING. UPON ENTERING ROOM WITH SPA MANAGER/ESTHETICIAN RN, PATIENT WAS SITTING AT BEDSIDE STRUGGLING TO BREATH. PLACED PATIENT ON 3L OF O2, CALLED RESPIRATORY THERAPY, AND ASSESSED SPO2. PATIENT AT 92% OR HIGHER ON 3L, HR WAS IN THE 130S, RR AT 26. PROVIDED DIRECTION TO PATIENT TO PERFORM PURSED LIP BREATHING. PATIENT ABLE TO FOLLOW DIRECTIONS. PATIENT ALERT AND ORIENTED, BUT EXPRESSING CONCERN THAT THESE ARE THE SAME SYMPTOMS THAT BROUGHT HER TO THE HOSPITAL. RESPIRATORY THERAPY IN THE ROOM. RT ADMINISTERING NEBULIZER WHILE RN CONTACTED DR. DARNELL. AFTER SECOND NEBULIZER, RT NOTIFIED RN THAT STORAGE BATTERY TESTER WAS NEEDED. STORAGE BATTERY TESTER CALLED AND STORAGE BATTERY TESTER TEAM TO THE ROOM. PER DR. DARNELL'S ORDERS, PATIENT TO BE PLACED ON BIPAP, TRANSFERED TO PCU AND TO START SOLU-MEDROL Q8HR NOW. NEW ORDERS IMPLEMENTED. PATIENT TRANSFERED TO PCU 15. REPORT CALLED TO ALBIN CH RN. TRANSFERED PATIENT ON BIPAP TO PCU. ALL BELONGINGS MOVED WITH THE PATIENT. PATIENT WORKING LESS TO BREATH BY THE TIME SHE ARRIVED TO PCU.
--- NOTE | 2019-08-07 06:14 | NUR ---
SHIFT SUMMARY PT A&O; BIPAP IN PLACE FOR APPROXIMATELY 4 HRS IN NIGHT; FIO2 TITRATED TO 30% PER RT; 2-3L NC; O2 SATS 93>; SBA TO BSC TO MANAGE CORDS; PT DENIES CHEST PAIN; VSS; SINUS TACH NOTED ON TELE; HR 110-128; DENIES NEEDS; CALL LIGHT IN REACH; BED IN LOWEST POSITION; WILL MONITOR CLOSELY UNTIL HAND OFF TO DAY SHIFT RNL.
--- NOTE | 2019-08-07 10:52 | NUR ---
NOTE PT ALERT AND ORIENTED. MILD SOB WITH TALKING. PRODUCTIVE COUGH OF YELLOW TINGED SPUTUM. SPUTUM CULTURE IN PROCESS. VS. PT DECLINING BIPAP AT THIS TIME. RIGHT HAND IV PATENT. UP TO BSC TO CONSERVE ENERGY. CALL LIGHT WITHIN REACH AND BED IN LOW POSITION. PT REMINDED TO CALL FOR HELP TO PREVENT FALLS. CONTINUE POT.
--- NOTE | 2019-08-07 17:24 | NUR ---
EVENING NOTE PT AWAKE AND ALERT. SR/ST. HR NOT NEARLY HIGH YESTERDAY. VSS. UP TO BSC. HAVE NOT USED BIPAP TODAY. EATING WELL. DENIED PAIN OR DISCOMFORT. CONTINUE POT.
--- NOTE | 2019-08-08 07:56 | NUR ---
SHIFT SUMMARY PT A&O; VSS; SLIGHT ELEVATION NOTED; SINUS TACH NOTED ON TELE DURING NIGHT; HR 100-118; O2 SATS >93 ON 2L NC; WHEEZE NOTED; SBA TO BSC FOR CORD MANAGEMENT; PT DID NOT WEAR BIPAP IN NIGHT; RT AT BEDSIDE IN NIGHT TO ASSESS; PT DENIES NEEDS AT THIS TIME; CALL LIGHT IN REACH; BED IN LOWEST POSITION; REPORT GIVEN TO DAY SHIFT RN
--- NOTE | 2019-08-08 18:45 | NUR ---
EVENING NOTE PT ALERT AND OREINTED. SR/ST. WEANED TO RA. SAT 93%. HR AT REST 90-100BPM. PT TOOK A SHOWER. HUMIDITY IN SHOWER CAUSED WHEEZING AND DEEP CONGESTED COUGH. PRN BREATHING TREATMENT DONE AND EFFECTIVE. PT EATING WELL. HAND SHAKING HAS DECREASED NOW THAT SHE IS ON PREDNISONE INSTEAD OF SOLUMEDROL. H/L RIGHT HAND. NO PAIN OR DISCOMFORT. CONTINUE POT.
--- NOTE | 2019-08-09 06:43 | NUR ---
SHIFT SUMMARY: PATIENT SLEPT WELL THIS SHIFT ON RA, NO ISSUES/CHANGES NOTED
--- NOTE | 2019-08-09 08:03 | NUR ---
ASSUMPTION OF CARE RECEIVED REPORT FROM FIREBRICK LAYER HELPER RN. PT AAOX3 RESTING COMFORTABLY IN BED. CURRENTLY ON RA, O2 SAT 93%. VS STABLE. PT REQUESTING TO SLEEP A LITTLE LONGER BEFORE BREAKFAST. PLAN FOR POSSIBLE DISCHARGE HOME TODAY. BED LOCKED & IN LOWEST POSITION, CALL LELO W/ IN REACH. WILL CONTINUE TO MONITOR.
--- NOTE | 2019-08-09 11:32 | NUR ---
DISCHARGE SUMMARY PT REMAINED STABLE THROUGHOUT SHIFT; NO ACUTE CHANGES. RESPIRATORY THERAPIST EVALUATED NEED FOR HOME OXYGEN; NO NEED FOR HOME O2 AT THIS TIME. DISCHARGE INSTRUCTIONS COMPLETED, CHANGES TO MED REC CLARIFIED W/ DR. HANSEN VIA TELEPHONE @ 1197. DISCHARGE EDUCATION COMPLETED W/ PT & PT'S ; DISCUSSED MED REC & FOLLOW UP INSTRUCTIONS; DISCUSSED THAT PT'S PCP WILL BE CALLING PT TO SCHEDULE AN APPOINTMENT. PT VERBALIZED UNDERSTANDING. NEW PRESCRIPTIONS CALLED IN TO PT'S HOME PHARMACY PER PT REQUEST - [facility] IN [place]. PT STATES SHE WILL PICKUP PRESCRIPTIONS TODAY. PROVIDED PT W/ HANDOUT ON COPD; HIGHLIGHTED MAIN POINTS & EMPHASIZED TO SEEK MEDICAL ATTENTION IF SYMPTOMS RETURN OR WORSEN. PT VERBALIZED UNDERSTANDING. IV REMOVED. ALL PAPERWORK & BELONGINGS GIVEN TO PT & PT'S . PT DISCHARGED HOME; TRANSPORTED OFF UNIT VIA WHEELCHAIR IN STABLE CONDITION, ACCOMPANIED BY ONLINE FACILITATOR.
== END 2019-08-09 11:16 | disposition home or self-care (01) | DRG 189 ==
LOC: ER 21:13 → MEDS 08-05 → PCU 08-06 19:40
PROVIDERS: Emergency Medicine; ADMIT Internal Medicine
DX: J96.01 Acute respiratory failure with hypoxia (principal); R65.11 Systemic inflammatory response syndrome (SIRS) of non-infectious origin with acute organ dysfunction; J44.1 Chronic obstructive pulmonary disease with (acute) exacerbation; E66.01 Morbid (severe) obesity due to excess calories; F32.9 Major depressive disorder, single episode, unspecified; K21.9 Gastro-esophageal reflux disease without esophagitis; E03.9 Hypothyroidism, unspecified; R00.0 Tachycardia, unspecified; E78.5 Hyperlipidemia, unspecified; Z87.891 Personal history of nicotine dependence; Z68.32 Body mass index [BMI] 32.0-32.9, adult; Z79.82 Long term (current) use of aspirin; Z79.52 Long term (current) use of systemic steroids; Z79.899 Other long term (current) drug therapy
CPT/HCPCS: 0099U; 36415; 36416; 71045; 80053; 81003; 82803; 83880; 84484; 85025; 85027; 87070; 87205; 93005; 93010; 94640; 94644; 94660; 94760; 94762; 96361; 96365; 99285-25; A9270-GY; J1650; J2930; J3475; J7030; J7512